=== PATIENT | male | born 1960 | race Caucasian/White ===

== ENCOUNTER 2016-07-06 04:40 | Emergency (ER) | payer OTHER ==
[~2016-07-06] VITALS: Ht 165.1 cm; Wt 66.0 kg
[2016-07-06 04:42] VITALS: BP 148/73; PULSE 69; RESP 18; TEMP 97.4; O2SAT 100
[2016-07-06] MEDS ORDERED: LIPI10TA PO (04:54)
[2016-07-06] MEDS ORDERED: BACL10TA PO (04:54)
[2016-07-06] MEDS ORDERED: ATEN50TA PO (04:54)
[2016-07-06] MEDS ORDERED: FLUO-1 PO (04:54)
[2016-07-06] MEDS ORDERED: DEME50TA PO (04:54)
[2016-07-06] MEDS ORDERED: META800T81 PO (05:12)
[2016-07-06] MEDS ORDERED: NAPR1TAB34 PO (05:12)
[2016-07-06] MEDS ORDERED: KETOROLAC TROMETHAMINE 60 MG/2 ML (IM) VIAL IM ONE (05:15)
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
== END 2016-07-06 06:46 | disposition home or self-care (01) ==
LOC: NEPC 04:40
DX: M54.5 Low back pain (principal)
CPT/HCPCS: 96372; 99283; J1885

== ENCOUNTER 2017-06-16 09:51 | Observation (INO) | payer OTHER ==
[~2017-06-16] VITALS: Ht 165.1 cm; Wt 70.0 kg
[~2017-06-16 09:51] MED LIST: ATEN50TA PO; BACL10TA PO; DEME50TA PO; FLUO-1 PO; LIPI10TA PO; META800T81 PO; NAPR1TAB34 PO
[2017-06-16 09:58] VITALS: BP 168/90; PULSE 56; RESP 16; TEMP 97.7; O2SAT 99
[2017-06-16] MEDS ORDERED: METH500T3 PO (10:09)
[2017-06-16] MEDS ORDERED: BUPR100T4 PO (10:09)
[2017-06-16] MEDS ORDERED: LISI40TA PO (10:09)
[2017-06-16] MEDS ORDERED: D 50CAP2 PO (10:11)
[2017-06-16] MEDS ORDERED: IBUP-232 PO (10:11)
[2017-06-16] MEDS ORDERED: ASPI-516 CHEW (10:11)
[2017-06-16] MEDS ORDERED: MIRTA15 PO (10:11)
[2017-06-16] MEDS ORDERED: PRAZ5CAP PO (10:11)
[2017-06-16] MEDS ORDERED: SODIUM CHLORIDE 0.9% FLUSH 10 ML FLUSH IVF PRN (10:30)
[2017-06-16 10:39] VITALS: BP 138/83; PULSE 58
[2017-06-16 10:43] LABS: AUTOMATED NEUTROPHIL # 5.8 TH/MM3 (1.8-7.7); BASOPHIL % 0.5 % (0.0-2.0); EOSINOPHIL # 0.1 TH/MM3 (0-0.4); EOSINOPHIL % 1.6 % (0.0-4.0); HEMATOCRIT 42.4 % (39.0-51.0); HEMOGLOBIN 14.7 GM/DL (13.0-17.0); LYMPH % 22.2 % (9.0-44.0); LYMPHOCYTE # 1.9 TH/MM3 (1.0-4.8); MEAN CELL VOLUME 78.8 FL (80.0-100.0); MEAN CORPUSCULAR HEMOGLOBIN 27.3 PG (27.0-34.0); MEAN CORPUSCULAR HGB CONC 34.7 % (32.0-36.0); MEAN PLATELET VOLUME 9.2 FL (7.0-11.0); MONO % 6.2 % (0.0-8.0); MONOCYTE # 0.5 TH/MM3 (0-0.9); NEUT % 69.5 % (16.0-70.0); PLATELET COUNT 252 TH/MM3 (150-450); RED BLOOD COUNT 5.38 MIL/MM3 (4.50-5.90); RED CELL DISTRIBUTION WIDTH 14.5 % (11.6-17.2); WHITE BLOOD COUNT 8.4 TH/MM3 (4.0-11.0)
--- NOTE | 2017-06-16 10:48 | PD ---
HPI Chief Complaint: Chest Pain Time Seen by Provider: 10:25 Travel History International Travel<30 days: No Contact w/Intl Traveler<30days: No Traveled to known affect area: No History of Present Illness HPI 57-year-old male patient with history of hypertension, [facility] history of substernal chest discomfort which she reports is currently a 3 out of 10. He denies any shortness of breath or any other symptoms. He has not noticed any exacerbating alleviating factors. He does state that he feels like a pressure. He states his blood pressures have been high recently as well. Modifying Factors: None Associated Signs & Symptoms: Chest discomfort Risk Factors: Hypertension PFSH Past Medical History Depression: Yes Hypertension: Yes Medical other: Yes (brain tumor ) Past Surgical History Other Surgery: Yes (cyst on bilat breasts ) Social History Alcohol Use: No Tobacco Use: No Substance Use: No Allergies-Medications (Allergen,Severity, Reaction): Coded Allergies: No Known Allergies (Unverified , 07/06/16) Reported Meds & Prescriptions Reported Meds & Active Scripts Active Reported Aspirin 81 Mg Chew 81 Mg CHEW DAILY D3 Maximum Strength (Cholecalciferol) 5,000 Unit Cap 5,000 Units PO DAILY Ibuprofen 600 Mg Tab 600 Mg PO TID Prazosin (Prazosin HCl) 5 Mg Cap 5 Mg PO HS Mirtazapine 15 Mg Tab 15 Mg PO HS Bupropion HCl 100 Mg Tab 150 Mg PO AC BREAKFAST Lisinopril 40 Mg Tab 40 Mg PO DAILY Methocarbamol 500 Mg Tab 500 Mg PO TID Atenolol 50 Mg Tab 50 Mg PO DAILY Review of Systems Except as stated in HPI: all other systems reviewed are Neg Physical Exam Narrative GENERAL: Well-developed middle-age male patient currently in mild distress. Awake and oriented 3. SKIN: Focused skin assessment warm/dry. HEAD: Atraumatic. Normocephalic. EYES: Pupils equal and round. No scleral icterus. No injection or drainage. ENT: No nasal bleeding or discharge. Mucous membranes pink and moist. NECK: Trachea midline. No JVD. CARDIOVASCULAR: Regular rate and rhythm. No murmur appreciated. RESPIRATORY: No accessory muscle use. Clear to auscultation. Breath sounds equal bilaterally. GASTROINTESTINAL: Abdomen soft, non-tender, nondistended. Hepatic and splenic margins not palpable. MUSCULOSKELETAL: No obvious deformities. No clubbing. No cyanosis. No edema. NEUROLOGICAL: Awake and alert. No obvious cranial nerve deficits. Motor grossly within normal limits. Normal speech. PSYCHIATRIC: Appropriate mood and affect; insight and judgment normal. Data Data Last Documented VS Vital Signs Date Time Temp Pulse Resp B/P (MAP) Pulse Ox O2 Delivery O2 Flow Rate FiO2 06/16/17 10:39 (101) Room Air 06/16/17 10:39 58 06/16/17 10:39 98 06/16/17 09:58 97.7 16 Orders Orders Electrocardiogram (06/16/17 10:21) Basic Metabolic Panel (Bmp) (06/16/17 10:21) Ckmb (Isoenzyme) Profile (06/16/17 10:21) Complete Blood Count With Diff (06/16/17 10:21) Magnesium (Mg) (06/16/17 10:21) Prothrombin Time / Inr (Pt) (06/16/17 10:21) Act Partial Throm Time (Ptt) (06/16/17 10:21) Troponin I (06/16/17 10:21) Ecg Monitoring (06/16/17 10:21) Bilateral Bp Monitoring (06/16/17 10:21) Iv Access Insert/Monitor (06/16/17 10:21) Oximetry (06/16/17 10:21) Oxygen Administration (06/16/17 10:21) Sodium Chloride 0.9% Flush (Ns Flush) (06/16/17 10:30) Chest, Pa & Lat (06/16/17 10:21) Labs Laboratory Tests Test 06/16/17 10:26 White Blood Count 8.4 TH/MM3 Red Blood Count 5.38 MIL/MM3 Hemoglobin 14.7 GM/DL Hematocrit 42.4 % Mean Corpuscular Volume 78.8 FL Mean Corpuscular Hemoglobin 27.3 PG Mean Corpuscular Hemoglobin Concent 34.7 % Red Cell Distribution Width 14.5 % Platelet Count 252 TH/MM3 Mean Platelet Volume 9.2 FL Neutrophils (%) (Auto) 69.5 % Lymphocytes (%) (Auto) 22.2 % Monocytes (%) (Auto) 6.2 % Eosinophils (%) (Auto) 1.6 % Basophils (%) (Auto) 0.5 % Neutrophils # (Auto) 5.8 TH/MM3 Lymphocytes # (Auto) 1.9 TH/MM3 Monocytes # (Auto) 0.5 TH/MM3 Eosinophils # (Auto) 0.1 TH/MM3 Basophils # (Auto) 0.0 TH/MM3 CBC Comment DIFF FINAL Differential Comment Prothrombin Time 10.6 SEC Prothromb Time International Ratio 1.0 RATIO Activated Partial Thromboplast Time 24.3 SEC Blood Urea Nitrogen 19 MG/DL Creatinine 1.11 MG/DL Random Glucose 97 MG/DL Calcium Level 8.7 MG/DL Magnesium Level 2.0 MG/DL Sodium Level 141 MEQ/L Potassium Level 4.3 MEQ/L Chloride Level 106 MEQ/L Carbon Dioxide Level 29.1 MEQ/L Anion Gap 6 MEQ/L Estimat Glomerular Filtration Rate 69 ML/MIN Total Creatine Kinase 38 U/L Troponin I LESS THAN 0.02 NG/ML [facility] Medical Decision Making Medical Screen Exam Complete: Yes Emergency Medical Condition: Yes Medical Record Reviewed: Yes Interpretation(s) Last 24 hours Impressions Chest X-Ray 06/16/17 1021 Signed Impressions: Service Date/Time: June 10:42 - CONCLUSION: No acute disease. Miguel Angel Olvera MD Laboratory Tests Test 06/16/17 10:26 Mean Corpuscular Volume 78.8 FL (80.0-100.0) Blood Urea Nitrogen 19 MG/DL (7-18) Estimat Glomerular Filtration Rate 69 ML/MIN (>89) Total Creatine Kinase 38 U/L (39-308) Troponin I LESS THAN 0.02 NG/ML Differential Diagnosis Chest pains: Anxiety attack versus dysrhythmias versus ACS versus hypertensive urgency Narrative Course EKG did not show any signs of significant ST changes. Cardiac enzymes are negative. Chest x-ray was unremarkable. At this point, my plan would be to admit him for further evaluation of chest pain and a chest pain center. Diagnosis Primary Impression: Chest pain Admitting Information Admitting Physician Requests: Admit Juan Valenzuela MD Jun 16, 2017 10:48
[2017-06-16 10:49] LABS: PROTHROMBIN TIME - PATIENT 10.6 SEC (9.8-11.6)
--- NOTE | 2017-06-16 10:54 | RADRPT ---
EXAM DATE/TIME: 06/16/2017 10:42 [facility] COMPARISON: No previous studies available for comparison. INDICATIONS : Tightness and pain in chest. MEDICAL HISTORY : Hypertension. SURGICAL HISTORY : Bilateral chest cyst removal. ENCOUNTER: Initial ACUITY: 1 week PAIN SCORE: 3/10 LOCATION: Bilateral chest FINDINGS: PA and lateral views of the chest demonstrate the lungs to be symmetrically aerated without evidence of mass, infiltrate or effusion. The cardiomediastinal contours are unremarkable. Osseous structure s are intact. CONCLUSION: No acute disease. Miguel Angel Olvera MD on June 16, 2017 at 10:52 Board Certified Radiologist. This report was verified electronically.
[2017-06-16 11:01] LABS: BICARBONATE 29.1 MEQ/L (21.0-32.0); BLOOD UREA NITROGEN 19 MG/DL (7-18); CALCIUM 8.7 MG/DL (8.5-10.1); CHLORIDE 106 MEQ/L (98-107); CREATININE 1.11 MG/DL (0.60-1.30); GLOMERULAR FILTRATION RATE 69 ML/MIN (>89); GLUCOSE,RANDOM 97 MG/DL (74-106); SODIUM (NA) 141 MEQ/L (136-145)
[2017-06-16 11:05] LABS: TROPONIN I LESS THAN 0.02 NG/ML (0.02-0.05)
[2017-06-16] MEDS ORDERED: ALPRAZolam 0.25 MG TAB PO PRN (12:00)
[2017-06-16] MEDS ORDERED: cloNIDine HCL 0.1 MG TAB PO PRN (12:00)
[2017-06-16] MEDS ORDERED: RESP: ALBUTEROL 2.5 MG/IPRATROPIUM 0.5 MG NEB (PRN) INH (12:00)
[2017-06-16] MEDS ORDERED: ACETAMINOPHEN 500 MG CPLT PO PRN (12:00)
[2017-06-16] MEDS ORDERED: ACETAMINOPHEN/HYDROcodone 325 MG/7.5 MG TAB PO PRN (12:00)
[2017-06-16] MEDS ORDERED: ONDANSETRON HCL 4 MG/2 ML VIAL IV PUSH PRN (12:00)
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
[2017-06-16 12:40] VITALS: BP 137/73; PULSE 59; RESP 18; TEMP 98; O2SAT 99
[2017-06-16 13:29] VITALS: BP 145/77; PULSE 58; RESP 20; TEMP 98.1; O2SAT 99
[2017-06-16] MEDS: METHOCARBAMOL 500 MG TAB PO SCH ×2 (14:24→16:55)
[2017-06-16] MEDS: PANTOPRAZOLE SOD 40 MG DELAYED RELEASE TAB PO SCH (14:24)
[2017-06-16 14:56] LABS: TROPONIN I LESS THAN 0.02 NG/ML (0.02-0.05)
[2017-06-16 14:57] VITALS: BP 163/97; PULSE 63; RESP 24; TEMP 98; O2SAT 97
[2017-06-16 16:25] VITALS: BP 125/71
[2017-06-16 17:36] LABS: TROPONIN I LESS THAN 0.02 NG/ML (0.02-0.05)
[2017-06-16] MEDS ORDERED: PRAZOSIN HCL 5 MG CAP PO SCH (21:00)
[2017-06-16] MEDS ORDERED: MIRTAZAPINE 15 MG TAB PO SCH (21:00)
[2017-06-17] VITALS: PULSE 61
[2017-06-17 04:00] VITALS: PULSE 54
[2017-06-17 04:36] VITALS: BP 116/51; PULSE 64; RESP 18; TEMP 98.1; O2SAT 95
[2017-06-17] MEDS ORDERED: buPROPion HCL 75 MG TAB PO SCH (07:00)
[2017-06-17 08:11] VITALS: BP 83/45; PULSE 68; RESP 16; TEMP 97.6; O2SAT 96
[2017-06-17] MEDS ORDERED: LISINOPRIL 20 MG TAB PO SCH (09:00)
[2017-06-17] MEDS: METHOCARBAMOL 500 MG TAB PO SCH (09:00)
[2017-06-17] MEDS: PANTOPRAZOLE SOD 40 MG DELAYED RELEASE TAB PO SCH (09:00)
[2017-06-17] MEDS ORDERED: ATENOLOL 50 MG TAB PO SCH (09:00)
[2017-06-17] MEDS ORDERED: ASPIRIN 325 MG TAB PO SCH (09:00)
[2017-06-17] MEDS ORDERED: REGADENOSON INJ 0.4 MG/5 ML SYR ONE (09:05)
--- NOTE | 2017-06-17 10:10 | RADRPT ---
EXAM DATE/TIME: 06/17/2017 08:45 [facility] COMPARISON: No previous studies available for comparison. INDICATIONS : Chest pain. Angina. DOSE: 27.3 mCi Tc99m Myoview at stress. 8.2 mCi Tc99m Myoview at rest. 0.4 mg Lexiscan STRESS SYMPTOMS: Dyspnea and stomach pain. EJECTION FRACTION: 67% MEDICAL HISTORY : Hypertension. Brain cancer. SURGICAL HISTORY : None. ENCOUNTER: Initial ACUITY: 1 day PAIN SCALE: 2/10 LOCATION: Midsternal chest TECHNIQUE: The patient underwent pharmacologic stress with infusion of prescribed dose. Continuous ECG tracing was monitored during stress. Gated SPECT imaging was performed after stress and conventional SPECT i maging was performed at rest. The examination was performed on a SPECT/CT scanner, both attenuation and non-corrected datasets were reviewed. FINDINGS: DISTRIBUTION: The maximum perfused segment at stress is in the anterolateral wall. PERFUSION STUDY: The pattern of perfusion at stress is within normal limits. GATED STUDY: There is intact wall motion and thickening without hypokinetic or dyskinetic segments. CONCLUSION: 1. No reversibility to suggest ischemia. 2. Normal wall motion with ejection fraction 67%. RISK CATEGORY: Low (<1% Annual Mortality Rate) Ko Coates MD on June 17, 2017 at 10:05 Board Certified Radiologist. This report was verified electronically.
[2017-06-17 10:59] VITALS: BP 99/54; PULSE 63; RESP 20; TEMP 97.5; O2SAT 99
--- NOTE | 2017-06-17 11:05 | HHI.DCPOC ---
Discharge Care Plan Diagnosis: (1) Chest pain Goals to Promote Your Health * To prevent worsening of your condition and complications * To maintain your health at the optimal level Directions to Meet Your Goals Take your medications as prescribed Follow your dietary instruction Follow activity as directed Keep your appointments as scheduled Take your immunizations and boosters as scheduled If your symptoms worsen call your PCP, if no PCP go to Urgent Care Center or Emergency Room Smoking is Dangerous to Your Health. Avoid second hand smoke Call the 24-hour hour crisis hotline for domestic abuse at Ernie Rausch Jun 17, 2017 11:05
[2017-06-17 11:30] VITALS: BP 125/65; PULSE 64; RESP 20; O2SAT 98
--- NOTE | 2017-06-17 17:36 | TR ---
Date Performed: 06/17/2017 Time Performed: 09:07:48 DOCTOR: Teresa Childress DRUG LIST: CLINICAL HISTORY: REASON FOR TEST: REASON FOR ENDING: OBSERVATION: CONCLUSION: Lexiscan stress test was performed under standard four minute protocol. Radionuclid e was injected one minute prior to ending the test. No electrocardiographic abormalities were present to suggest ischemia. Nuclear imaging and interpretation are pending. COMMENTS:
--- NOTE | 2017-06-17 17:39 | EKG ---
Date Performed: 06/16/2017 Time Performed: 14:02:15 PTAGE: 57 years EKG: SINUS BRADYCARDIA MINIMAL VOLTAGE CRITERIA FOR LVH, CONSIDER NORMAL VARIANT BORDERLINE ECG Since PREVIOUS TRACING , no significant change noted PREVIOUS TRACIN06/16/2017 09.59 DOCTOR: Teresa Childress Interpretating Date/Time 06/17/2017 17:39:45
--- NOTE | 2017-06-17 17:39 | EKG ---
Date Performed: 06/16/2017 Time Performed: 16:33:00 PTAGE: 57 years EKG: SINUS BRADYCARDIA MINIMAL VOLTAGE CRITERIA FOR LVH, CONSIDER NORMAL VARIANT BORDERLINE ECG Since PREVIOUS TRACING , no significant change noted PREVIOUS TRACIN06/16/2017 14.02 DOCTOR: Teresa Childress Interpretating Date/Time 06/17/2017 17:39:01
--- NOTE | 2017-06-17 17:43 | EKG ---
Date Performed: 06/16/2017 Time Performed: 09:59:32 PTAGE: 57 years EKG: SINUS BRADYCARDIA BORDERLINE ECG NO PREVIOUS TRACING DOCTOR: Teresa Childress Interpretating Date/Time 06/17/2017 17:43:04
== END 2017-06-17 12:33 | disposition home or self-care (01) ==
LOC: NEPE 09:51 → NEDA 11:19 → NEPGCP 14:30
PROVIDERS: ADMIT Internal Medicine Interventional Cardiology; ATTEND Internal Medicine Interventional Cardiology
DX: R07.89 Other chest pain (principal); R00.1 Bradycardia, unspecified; I10 Essential (primary) hypertension; M54.9 Dorsalgia, unspecified; G89.29 Other chronic pain; F32.9 Major depressive disorder, single episode, unspecified; Z79.899 Other long term (current) drug therapy; Z86.011 Personal history of benign neoplasm of the brain
CPT/HCPCS: 71046; 78452; 80048; 82550; 83735; 84484; 85025; 85610; 85730; 93005; 93017; 99285; A9502; G0378; J2785